=== PATIENT | female | born 1950 ===

== ENCOUNTER 2021-08-06 06:52 | Day surgery (SDC) | payer MEDICARE, OTHER ==
[2021-08-06] VITALS (279 sets, daily range): BP systolic 88–164; BP diastolic 48–88; PULSE 57–88; TEMP 97.9–98.3; O2SAT 93–97
[~2021-08-06] VITALS: Ht 162.7 cm; Wt 73.2 kg
[2021-08-06 07:57] LABS: HEMATOCRIT 40.9 % (37.0-47.0); HEMOGLOBIN 13.3 g/dl (12.5-16.0); MEAN CELL VOLUME 94 fl (80.0-100.0); MEAN CORPUSCULAR HEMOGLOBIN 31 pg (27-31); MEAN CORPUSCULAR HGB CONC 33 g/dl (33.0-37.0); MEAN PLATELET VOLUME 8.9 fl (7.4-10.4); PLATELET COUNT 222 K/mm3 (130-400); RED BLOOD COUNT 4.34 M/mm3 (4.10-5.30); REDCELL DISTRIBUTION WIDTH-CV 13.4 % (11.5-14.5)
[2021-08-06 08:17] LABS: CREATININE, serum 0.75 mg/dL (0.57-1.11); POTASSIUM 4.2 mmol/L (3.5-4.5)
[2021-08-06] MEDS ORDERED: LIPITOR 40MG TA40 MG PO (08:47)
[2021-08-06] MEDS ORDERED: PREDNISONE 2.52.5 MG PO (08:48)
[2021-08-06] MEDS ORDERED: ULTRAM 50MG TAB50 MG PO (08:48)
[2021-08-06] MEDS ORDERED: LOPRESSOR 225 MG/TAB PO (08:49)
[2021-08-06] MEDS ORDERED: NIACIN250 M2 PO (08:50)
[2021-08-06] MEDS ORDERED: ASPIRIN 32325 MG/TAB PO (08:50)
[2021-08-06] MEDS ORDERED: MULTI VITAMINS1 TAB PO (08:51)
[2021-08-06] MEDS ORDERED: TYLENOL 500MG500 MG PO (08:52)
[2021-08-06] MEDS ORDERED: ADVIL200 MG PO (08:53)
[2021-08-06] MEDS ORDERED: RITUXAN 10100 MG/10 IV (08:54)
[2021-08-06 09:00] LABS: PROTHROMBIN TIME 11.7 SECONDS (9.7-12.8)
[2021-08-06 09:02] LABS: PARTIAL THROMBOPLASTIN TIME 29.9 SECONDS (26.0-37.0)
--- NOTE | 2021-08-06 09:08 | NUR ---
Pt to procedure,report to MARIAJOSE Rodas.
--- NOTE | 2021-08-06 17:15 | NUR ---
All air released from band in 2-3 ml incriments.Right radial site is wrapped with gauze and coban.No bleeding observed at site.
--- NOTE | 2021-08-06 17:43 | NUR ---
Pt to room 307,report to Gretchen Gutierrez.
--- NOTE | 2021-08-06 18:30 | NUR ---
PT ARRIVED TO FLOOR, R RADIAL SITE ASSESSED WITH EXPRESS NURSE, SITE SOFT AND NON TENDER. NO OTHER NEEDS
[2021-08-07 03:18] LABS: BASO % 0.5 % (0.0-2.0); EOS # 0.2 K/mm3 (0.0-0.7); EOS % 2.8 % (0.0-4.0); GRAN # 5.5 K/mm3 (1.4-6.5); GRAN % 67.4 % (42.2-75.2); HEMATOCRIT 40.5 % (37.0-47.0); HEMOGLOBIN 13.3 g/dl (12.5-16.0); LYMPH # 1.7 K/mm3 (1.2-3.4); LYMPH % 20.5 % (20.0-51.0); MEAN CELL VOLUME 93 fl (80.0-100.0); MEAN CORPUSCULAR HEMOGLOBIN 30 pg (27-31); MEAN CORPUSCULAR HGB CONC 33 g/dl (33.0-37.0); MEAN PLATELET VOLUME 8.7 fl (7.4-10.4); MONO # 0.7 K/mm3 (0.1-0.6); MONO % 8.6 % (1.7-9.3); PLATELET COUNT 220 K/mm3 (130-400); RED BLOOD COUNT 4.38 M/mm3 (4.10-5.30); REDCELL DISTRIBUTION WIDTH-CV 13.2 % (11.5-14.5)
[2021-08-07 03:33] VITALS: BP 148/84; PULSE 71; TEMP 97.8
[2021-08-07 03:38] LABS: CALCIUM 8.8 mg/dL (8.4-10.2); CREATININE, serum 0.72 mg/dL (0.57-1.11); POTASSIUM 3.8 mmol/L (3.5-4.5)
--- NOTE | 2021-08-07 06:25 | NUR ---
ASSESSMENT COMPLETE FOR THIS SHIFT. PT RESTING IN BED WATCHING TV. PT COMPLAINED OF GENERALIZED PAIN. PT REQUESTED AND GIVEN TRAMADOL FOR PAIN. PT FELT PAIN MEDICATION WAS EFFECTIVE. PT DENIED CHEST PAIN, PALPITATIONS, SOB, N,V,D OR DIZZINESS. RT RADIAL SITE CDI WITH NO BLEEDING, SWELLING, PAIN OR BRUISING. PT EXPRESSED NO OTHER NEEDS AT THIS TIME. CALL LIGHT WITHIN REACH.
[2021-08-07 07:25] VITALS: BP 168/72; PULSE 63; TEMP 97.9
--- NOTE | 2021-08-07 07:41 | NUR ---
PT WAS SEEN 08/06/21 BY CR STAFF. DISCHARGE INSTRUCTIONS FOR RADIAL HEART CATHERIZATION REVIEWED - MONITORING FOR REDNESS, HOT TO THE TOUCH, INFLAMMATION, OR TEMPERATURE OF <100.4. REVIEED WHEN TO CONTACT PROVIDER FOR SIGNS AND SYMPTOMS OF COMPLICATIONS OR PA. ALSO, REVIEWED RISK FACTORS FOR CVD. COVERED APPLICABLE MODIFIABLE RISK FACTORS INCLUDING THE FOLLOWING: TOBACCO CESSATION, HTN, HYPERLIPIDEMIA, DIABETES, OVERWEIGHT/OBESITY, SEDENTARY LIFESTYLE AND STRESS/DEPREESION. PT VERBALIZED UNDERSTANDING. REFERRAL SENT TO [facility] WITH PATIENT'S PERMISSION.
--- NOTE | 2021-08-07 08:46 | NUR ---
Patient sitting in the recliner upon entering the room. Patient A&Ox4 and independent. Denying any concerns this morning. Patient heart cath access site looks good, site is free of hematoma or pain. Coband removed and bandaid applied.
--- NOTE | 2021-08-07 09:34 | NUR ---
flare worker met with patient to discharge plan. Patient reports that she lives at home with with her Leoncio ([phone]) in [place]. Patient reports to being fully independent with her ADL's and does not utilize any DME to assist with mobility. Patient has no home oxygen needs. PCP is Dr.David Braxton and she utilizes [facility] in [place] for perscription needs. Patient does not have aDPOA-HC established at this time. Education provided and patient denies wanting to establish one. Patient is planning on returning home once medically ready. Discharge plan: Home w/spouse
--- NOTE | 2021-08-07 10:14 | NUR ---
Initial visit; Patient awaiting discharge from hospital. Lisa thanked for looking in on her and offering blessings.
[2021-08-07 11:20] VITALS: BP 168/72; PULSE 63; TEMP 98.1
[2021-08-07] MEDS ORDERED: LIPITOR 80MG80 MG PO (11:59)
[2021-08-07] MEDS ORDERED: ASPIRIN E.C. 8181 MG PO (12:00)
[2021-08-07] MEDS ORDERED: NORVASC2.5 MG PO (12:00)
[2021-08-07] MEDS ORDERED: PLAVIX 75MG TAB75 MG PO (12:01)
--- NOTE | 2021-08-07 13:58 | NUR ---
Patient discharged home. IV and telemetry removed by this RN. All discharge information/education discussed w/ patient. Patient verbalized understanding and signed appropriate paperwork. Patient denied any concerns at the time of discharge.
== END 2021-08-07 12:35 | disposition home or self-care (01) ==
LOC: COL.CAR 06:52 → MEDICAL 19:18 → COL.CAR 08-07 07:00
PROVIDERS: Internal Medicine Cardiovascular Disease
DX: I25.10 Atherosclerotic heart disease of native coronary artery without angina pectoris (principal)
CPT/HCPCS: OP; C1725; C1769; C1874; C1887; C9600; J0583; J1644; J2250; J3010; J7512